=== PATIENT | female | born 1980 | race Asian ===

== ENCOUNTER 2016-06-15 12:23 | Observation (INO) | payer OTHER ==
[~2016-06-15] VITALS: Ht 157.5 cm; Wt 77.1 kg
[~2016-06-15 12:23] MED LIST: ASPI-231 PO; CARV3.1240 PO; CHOL45CA2 OR; DIGO0.2570 PO; GLIP2.5T24 PO; GLIPPOW9 XX; LISI-713; METF-312 PO
[2016-06-15 13:40] LABS: Urine Bilirubin Negative (Negative); Urine Blood Negative /uL (Negative); Urine Color Yellow (Yellow); Urine Nitrite Negative (Negative); Urine RBC <1 /hpf (0 - 4); Urine Squamous Epithelial Cell FEW /hpf (<5); Urine Urobilinogen Normal (Negative); Urine pH 5.5 (5.0-8.0)
[2016-06-15 13:51] LABS: Urine Glucose 4+ mg/dL (Normal); Urine Ketone 2+ (Negative)
[2016-06-15 14:05] LABS: Magnesium 2.2 mg/dL (1.6-2.6)
[2016-06-15 14:08] LABS: Potassium 4.6 mmol/L (3.5-5.1)
[2016-06-15 14:47] LABS: Basophils # (auto) 0 uL; Basophils % (auto) 0.1 % (0.0-2.0); DEFINITIVE VIEW TRANSMISSION; Eosinophils # (auto) 0 uL; Eosinophils % (auto) 0.4 % (0.0-7.0); Lymphocytes # (auto) 0.9 uL; Lymphocytes % (auto) 6.7 % (10.0-50.0); Mean Platelet Volume 8.9 fL (7.4-10.4); Monocytes # (auto) 0.6 uL; Monocytes % (auto) 4.5 % (0.0-12.0); Neutrophils # (auto) 11.5 uL; Neutrophils % (auto) 88.3 % (37.0-80.0); Platelet Count (auto) 257 10^3/uL (140-450); Red Cell Distribution Width 13.1 % (11.6-16.0)
[2016-06-15 14:48] LABS: Hematocrit 39.3 % (36.0-46.0); Hemoglobin 13.4 g/dL (12.2-16.2); Mean Corpuscular Hemoglobin 27.5 pg (28.0-32.0)
[2016-06-15 14:49] LABS: Mean Corpuscular Hgb Conc. 34.1 g/dL (32.0-36.0)
[2016-06-15 14:57] LABS: Bilirubin, Total 0.4 mg/dL (0.2-1.0)
[2016-06-15 14:59] LABS: Calcium 6.4 mg/dL (8.5-10.1)
[2016-06-15 15:10] LABS: BUN/Creatinine Ratio 10.4
[2016-06-15 15:11] LABS: Aspartate Aminotransferase 64.8 U/L (15-37)
[2016-06-15 15:12] LABS: Albumin 3.8 g/dL (3.4-5.0)
[2016-06-15 15:13] LABS: Amylase 136.8 U/L (25-115)
[2016-06-15 15:16] LABS: Total Protein 6.7 g/dL (6.4-8.2)
[2016-06-15 16:24] LABS: Large Platelets FEW; Platelet Estimate Adequa
[2016-06-15] MEDS ORDERED: SODIUM CHLORIDE 0.9% 1,000 ML IVB ONE (20:14)
[2016-06-15] MEDS ORDERED: MORPHINE SULF INJ 2 MG/ML SYRINGE 1ML IV ONE (20:15)
[2016-06-15] MEDS ORDERED: ONDANSETRON HCL 4 MG/2 ML VIAL IV ONE (20:15)
[2016-06-15 22:24] LABS: Partial Thromboplastin Time 29.2 sec (22.64-33.71)
[2016-06-16 02:30] VITALS: BP 133/86
[2016-06-16] MEDS ORDERED: MORPHINE SULFATE 4 MG/ML SYRG IV ONE (02:30)
[2016-06-16] MEDS ORDERED: ONDANSETRON HCL 4 MG/2 ML VIAL IV ONE (02:30)
== END 2016-06-16 03:15 | disposition short-term general hospital (02) | DRG 439 ==
LOC: ER 12:23 → OVERFLOW 20:16 → ER 06-16 03:15
PROVIDERS: ADMIT Family Medicine; ATTEND Family Medicine
DX: K85.81 Other acute pancreatitis with uninfected necrosis (principal); E87.1 Hypo-osmolality and hyponatremia; R11.2 Nausea with vomiting, unspecified; I10 Essential (primary) hypertension; E10.9 Type 1 diabetes mellitus without complications
CPT/HCPCS: 36415; 71010; 74176; 80053; 81001; 81025; 82150; 83690; 83735; 85025; 85610; 85730; 93005; 96361; 96374; 96375; 96376; 99285; G0378; J2270; J2405; J7030